=== PATIENT | male | born 1950 | race African-American/Black ===

== ENCOUNTER 2020-01-04 10:51 | Observation (INO) | payer OTHER, MEDICARE ==
[2020-01-04 11:51] LABS: Protime INR 1.01
--- NOTE | 2020-01-04 11:53 | RAD REPORT ---
EXAM DESCRIPTION: Jessie Single View01/04/2020 11:43 am CLINICAL HISTORY: Cough COMPARISON: None FINDINGS: The lungs appear clear of acute infiltrate. The heart is mildly to moderately enlarged. P acemaker leads are in place. 3.7 centimeter lucency is present within the left humeral head IMPRESSION: 3.7 centimeter lucency within the left humeral head. It is recommended that the patient have a follow up left shoulder x-ray in 2 months for re-evaluation
[2020-01-04 12:07] LABS: ALT/SGPT 14 U/L (12-78); AST/SGOT 24 U/L (15-37); Albumin 3.9 g/dL (3.4-5.0); Alkaline Phosphatase 50 U/L (45-117); BUN Blood Urea Nitrogen 17 mg/dL (7-18); Bicarbonate 29 mmol/L (21-32); Bilirubin Direct 0.2 mg/dL (0-0.2); Bilirubin Total 0.6 mg/dL (0.2-1.0); CKMB Creatine Kinase MB < 1.0 ng/mL (0.3-3.6); Creatine Phosphokinase 139 U/L (39-308); Glucose Level 105 mg/dL (74-106); Lipase 182 U/L (73-393); Potassium 3.1 mmol/L (3.5-5.1); Protein, Total 8.2 g/dL (6.4-8.2); Sodium Level 136 mmol/L (136-145); Troponin (Emerg Dept Use Only) 0.03 ng/mL (0.0-0.045)
--- NOTE | 2020-01-04 13:02 | ER ---
Nurse's Notes [facility] Name: Gonzalez Villa Age: 69 yrs Sex: Male : 1950 Arrival Date: 01/04/2020 Time: 10:52 Bed 6 Private MD: Diagnosis: Syncope and collapse Presentation: 01/03 10:13 Chief complaint: EMS states: he finished HD and was on his way home, was passenger in sv the car and had a syncopal episode, denied CP. AFib on monitor 80s and intermittently go up to 144. BP 177/99. Pt reports SOB and productive cough for about 3 months. His PCP has prescribed medication for his symptoms. Coronavirus screen: Patient denies fever greater than 100.4F, cough, shortness of breath, or difficulty breathing. Proceed with normal triage process. Ebola Screen: Patient negative for fever greater than or equal to 101.5 degrees Fahrenheit, and additional compatible Ebola Virus Disease symptoms Patient denies exposure to infectious person. Patient denies travel to an Ebola-affected area in the 21 days before illness onset. No symptoms or risks identified at this time. Initial Sepsis Screen: Does the patient meet any 2 criteria? No. Patient's initial sepsis screen is negative. Does the patient have a suspected source of infection? Yes: Productive cough/pneumonia. Risk Assessment: Do you want to hurt yourself or someone else? Patient reports no desire to harm self or others. 10:13 Method Of Arrival: EMS: [facility] 10:13 Acuity: DAIANA 2 sv 10:15 Onset of symptoms was January 04, 2020. sv Triage Assessment: 10:15 General: Appears in no apparent distress. comfortable, well groomed, well developed, sv Behavior is calm, cooperative, appropriate for age. Pain: Denies pain. Neuro: Level of Consciousness is awake, alert, obeys commands, Oriented to person, place, time, situation, Moves all extremities. Full function Gait is steady, Reports a syncopal episode weakness Denies dizziness. Cardiovascular: Patient's skin is warm and dry. Pulses are palpable in right radial artery and left radial artery Dialysis shunt: in the right arm, with palpable thrill, no bleeding noted. Respiratory: Reports shortness of breath on exertion Airway is patent Respiratory effort is even, unlabored, Respiratory pattern is regular, symmetrical, the patient has mild shortness of breath. Derm: Skin is intact, Skin is normal. Musculoskeletal: Range of motion: intact in all extremities. Historical: - Allergies: 13:27 Cipro; sv 13:27 Levaquin; sv 13:27 Stadol; sv - Home Meds: 10:59 radiation tx [Active]; sv 13:27 calcium acetate 667 mg oral cap 2-3 times daily [Active]; lisinopril 10 mg Oral tab 1 sv tab once daily [Active]; hydralazine 25 mg Oral tab three times a day [Active]; Coreg 25 mg Oral tab 1 tab 2 times per day [Active]; magnesium oxide 400 mg Oral tab twice a day [Active]; Plavix 75 mg Oral tab 1 tab once daily [Active]; isosorbide dinitrate 20 mg Oral tab Q8h [Active]; aspirin 81 mg Oral chew 1 tab once daily [Active]; nitroglycerin 0.4 mg SL subl 1 tab every 5 minutes [Active]; - PMHx: 10:59 HD; Colon cancer; Hypertension; sv 13:27 Short term memory loss; CVA; sv - PSHx: 10:59 pacemaker with defibrillator; sv - Immunization history:: Adult Immunizations up to date. - Social history:: Smoking status: Patient denies any tobacco usage or history of. Patient/guardian denies using alcohol, street drugs, The patient lives with family. - Family history:: not pertinent. Screenin:09 Abuse screen: Denies threats or abuse. Denies injuries from another. Nutritional sv screening: No deficits noted. Tuberculosis screening: No symptoms or risk factors identified. Fall Risk None identified. Assessment: 11:30 Reassessment: Patient appears in no apparent distress at this time. No changes from sv previously documented assessment. Patient and/or family updated on plan of care and expected duration. Pain level reassessed. Patient is alert, oriented x 3, equal unlabored respirations, skin warm/dry/pink. 12:05 Reassessment: Pt's HR went up to about 130-140. Pt now in the 80s. sv 12:30 Reassessment: Patient appears in no apparent distress at this time. No changes from sv previously documented assessment. Patient and/or family updated on plan of care and expected duration. Pain level reassessed. Patient is alert, oriented x 3, equal unlabored respirations, skin warm/dry/pink. 13:25 Reassessment: Spoke with Dawson, (sister) and she stated that his defibrillator went off sv before he passed out. 13:40 Reassessment: Patient appears in no apparent distress at this time. No changes from sv previously documented assessment. Patient and/or family updated on plan of care and expected duration. Pain level reassessed. Patient is alert, oriented x 3, equal unlabored respirations, skin warm/dry/pink. 13:44 Reassessment: Spoke with Slade at [facility] and stated she would page someone sv out to interrogate his pacemaker. 14:40 Reassessment: Spoke with Scarlet at [facility], they are not doing ER checks at this time unless urgent ie: failure to capture or repeatedly shocking patient. Device is a single ICD, rate set at 40. Dr. Suggs notified. 15:06 Reassessment: Patient appears in no apparent distress at this time. Patient and/or sv family updated on plan of care and expected duration. Pain level reassessed. Patient is alert, oriented x 3, equal unlabored respirations, skin warm/dry/pink. 16:06 Reassessment: Patient appears in no apparent distress at this time. Patient and/or sv family updated on plan of care and expected duration. Pain level reassessed. Patient is alert, oriented x 3, equal unlabored respirations, skin warm/dry/pink. 17:00 Reassessment: Patient appears in no apparent distress at this time. Patient and/or hb family updated on plan of care and expected duration. Pain level reassessed. Patient is alert, oriented x 3, equal unlabored respirations, skin warm/dry/pink. 17:52 Reassessment: Patient appears in no apparent distress at this time. Patient and/or hb family updated on plan of care and expected duration. Pain level reassessed. Patient is alert, oriented x 3, equal unlabored respirations, skin warm/dry/pink. 17:59 Reassessment: Attempted to call report, receiving nurse unavailable at this time. hb 18:15 Reassessment: Attempted to call report, nurse to call back. sv 18:54 Reassessment: Patient appears in no apparent distress at this time. Patient and/or hb family updated on plan of care and expected duration. Pain level reassessed. Patient is alert, oriented x 3, equal unlabored respirations, skin warm/dry/pink. 19:20 General: Appears in no apparent distress. comfortable, Behavior is calm, cooperative, jd3 appropriate for age. Pain: Denies pain. Neuro: Level of Consciousness is awake, alert, obeys commands, Oriented to person, place, time, situation, Reports syncope episode prior to arrival at ER.. Cardiovascular: Denies chest pain, Capillary refill < 3 seconds Patient's skin is warm and dry. Rhythm is regular. Respiratory: Airway is patent Respiratory effort is even, unlabored, Respiratory pattern is regular, symmetrical, Denies cough, shortness of breath. GI: No signs and/or symptoms were reported involving the gastrointestinal system. Patient currently denies nausea, vomiting. : No signs and/or symptoms were reported regarding the genitourinary system. EENT: No signs and/or symptoms were reported regarding the EENT system. Derm: Skin is intact, Skin is dry, Skin is normal, Skin temperature is warm. Musculoskeletal: Circulation, motion, and sensation intact. Range of motion: intact in all extremities. 19:30 Reassessment: Patient appears in no apparent distress at this time. attempting to call report now. Vital Signs: 10:13 BP 182 / 115; Pulse 93; Resp 20; Temp 98.4(TE); Pulse Ox 100% on R/A; Weight 84.5 kg; sv Height 5 ft. 10 in. (177.80 cm); Pain 0/10; 11:30 BP 152 / 83; Pulse 99; Resp 20; Pulse Ox 100% on R/A; sv 13:27 BP 135 / 95; Pulse 86; Resp 16; Pulse Ox 100% ; sv 14:30 BP 165 / 113; Pulse 82; Resp 16; Pulse Ox 100% ; sv 15:00 BP 172 / 105; Pulse 80; Resp 16; Pulse Ox 100% ; sv 16:05 BP 159 / 94; Pulse 80; Resp 17; Pulse Ox 100% ; sv 17:00 BP 161 / 92; Pulse 74; Resp 17; Pulse Ox 99% on R/A; hb 18:13 BP 146 / 93; Pulse 74; Resp 16; Pulse Ox 100% ; sv 19:23 BP 155 / 88; Pulse 77; Resp 18 S; Pulse Ox 99% on R/A; Pain 0/10; jd3 10:13 Body Mass Index 26.73 (84.50 kg, 177.80 cm) sv ED Course: 10:15 lunchroom monitor on. Pulse ox on. NIBP on. sv 10:52 Patient arrived in ED. sv 10:52 Suri Melendez, RN is Primary Nurse. sv 10:57 Triage completed. sv 10:58 Summer Suggs MD is Attending Physician. ma2 10:59 Arm band placed on. sv 11:00 Patient has correct armband on for positive identification. Placed in gown. Bed in low sv position. Call light in reach. Door closed. Warm blanket given. Head of bed elevated. 11:15 Missed attempt(s): 22 gauge in left forearm. Bleeding controlled, band aid applied, sv catheter tip intact. 11:20 Missed attempt(s): 20 gauge in left forearm. done by María MOLINA. Bleeding controlled, sv band aid applied, catheter tip intact. 11:25 Missed attempt(s): 24 gauge in left hand. done by María MOLINA. Bleeding controlled, band sv aid applied, catheter tip intact. 11:30 Missed attempt(s): 24 gauge in left hand. Bleeding controlled, band aid applied, sv catheter tip intact. 11:38 X-ray(s) taken. sv 11:50 Chest Single View XRAY In Process Unspecified. EDMS 13:01 Alexi Gamez is Hospitalizing Provider. ma2 13:18 Inserted 20 gauge 10 cm power glide midline inserted to L upper arm. Pt tolerated well. ss Blood return noted, flushes easily. 14:07 Lab(s) recollected, by me, sent to lab. sv 16:35 Diet tray given. jp3 19:11 Primary Nurse role handed off by Suri Melendez, JESSE sv 19:11 Report given to Joi MOLINA and Nga MOLINA. sv 19:19 Brendan Enrique RN is Primary Nurse. jd3 19:29 lunchroom monitor on. Pulse ox on. NIBP on. jd3 19:37 No provider procedures requiring assistance completed. Patient admitted, IV remains in ch place. Administered Medications: 13:27 CANCELLED (Physician Discretion): Potassium Chloride 20 mEq PO once sv 13:28 Drug: Potassium Effervescent Tablet 25 mEq Route: PO; sv 14:07 Follow up: Response: No adverse reaction sv Point of Care Testin:37 N/A Ranges: Outcome: 13:01 Decision to Hospitalize by Provider. ma2 19:36 Admitted to Tele accompanied by tech, room 208, with chart, Report called to Maddie MOLINA 19:36 Condition: stable 19:36 Instructed on the need for admit. 19:56 Patient left the ED. Signatures: Dispatcher [employer] Joi Skelton RN RN Suri Melendez RN RN Chantal Motta RN RN María Thurston RN RN hb Davies, Jonathon, RN RN jd3 Alzahri, Mohammad, MD MD ma2 Michael Acosta jp3 Corrections: (The following items were deleted from the chart) 11:38 11:25 Missed attempt(s): 24 gauge in left hand. Bleeding controlled, band aid applied, sv catheter tip intact. sv 13:10 11:00 lunchroom monitor on. Pulse ox on. NIBP on. sv sv
--- NOTE | 2020-01-04 13:03 | EDPHYS ---
Physician Documentation [facility] Name: Gonzalez Villa Age: 69 yrs Sex: Male : 1950 Arrival Date: 01/04/2020 Time: 10:52 Bed 6 Private MD: ED Physician Summer Suggs HPI: 01/03 12:56 This 69 yrs old Black Male presents to ER via EMS with complaints of Syncope, Shortness ma2 Of Breath. 12:56 The patient has experienced syncope, The patient has experienced near-syncope. Onset: ma2 The symptoms/episode began/occurred suddenly, 1 day(s) ago. Duration: This was a single episode. Associated signs and symptoms: Pertinent negatives: ataxia, combativeness, diarrhea, dizziness. Current symptoms: Currently, the patient is not experiencing any symptoms. The patient has not experienced similar symptoms in the past. post dialysis and radiation had near syncope has tachycardia he is not short of breath at this time and his saturation is normal on RA. Historical: - Allergies: 13:27 Cipro; sv 13:27 Levaquin; sv 13:27 Stadol; sv - Home Meds: 10:59 radiation tx [Active]; sv 13:27 calcium acetate 667 mg oral cap 2-3 times daily [Active]; lisinopril 10 mg Oral tab 1 sv tab once daily [Active]; hydralazine 25 mg Oral tab three times a day [Active]; Coreg 25 mg Oral tab 1 tab 2 times per day [Active]; magnesium oxide 400 mg Oral tab twice a day [Active]; Plavix 75 mg Oral tab 1 tab once daily [Active]; isosorbide dinitrate 20 mg Oral tab Q8h [Active]; aspirin 81 mg Oral chew 1 tab once daily [Active]; nitroglycerin 0.4 mg SL subl 1 tab every 5 minutes [Active]; - PMHx: 10:59 HD; Colon cancer; Hypertension; sv 13:27 Short term memory loss; CVA; sv - PSHx: 10:59 pacemaker with defibrillator; sv - Immunization history:: Adult Immunizations up to date. - Social history:: Smoking status: Patient denies any tobacco usage or history of. Patient/guardian denies using alcohol, street drugs, The patient lives with family. - Family history:: not pertinent. ROS: 12:56 Constitutional: Negative for fever, chills, and weight loss. ma2 12:56 All other systems are negative. Exam: 12:56 Abdomen/GI: Exam negative for ma2 12:56 Constitutional: This is a well developed, well nourished patient who is awake, alert, and in no acute distress. Head/Face: Normocephalic, atraumatic. Chest/axilla: Normal chest wall appearance and motion. Nontender with no deformity. No lesions are appreciated. Cardiovascular: Regular rate and rhythm with a normal S1 and S2. No gallops, murmurs, or rubs. Normal PMI, no JVD. No pulse deficits. Respiratory: Lungs have equal breath sounds bilaterally, clear to auscultation and percussion. No rales, rhonchi or wheezes noted. No increased work of breathing, no retractions or nasal flaring. Abdomen/GI: Soft, non-tender, with normal bowel sounds. No distension or tympany. No guarding or rebound. No evidence of tenderness throughout. MS/ Extremity: Pulses equal, no cyanosis. Neurovascular intact. Full, normal range of motion. Neuro: Awake and alert, GCS 15, oriented to person, place, time, and situation. Cranial nerves II-XII grossly intact. Motor strength 5/5 in all extremities. Sensory grossly intact. Cerebellar exam normal. Normal gait. Vital Signs: 10:13 BP 182 / 115; Pulse 93; Resp 20; Temp 98.4(TE); Pulse Ox 100% on R/A; Weight 84.5 kg; sv Height 5 ft. 10 in. (177.80 cm); Pain 0/10; 11:30 BP 152 / 83; Pulse 99; Resp 20; Pulse Ox 100% on R/A; sv 13:27 BP 135 / 95; Pulse 86; Resp 16; Pulse Ox 100% ; sv 14:30 BP 165 / 113; Pulse 82; Resp 16; Pulse Ox 100% ; sv 15:00 BP 172 / 105; Pulse 80; Resp 16; Pulse Ox 100% ; sv 16:05 BP 159 / 94; Pulse 80; Resp 17; Pulse Ox 100% ; sv 17:00 BP 161 / 92; Pulse 74; Resp 17; Pulse Ox 99% on R/A; hb 18:13 BP 146 / 93; Pulse 74; Resp 16; Pulse Ox 100% ; sv 19:23 BP 155 / 88; Pulse 77; Resp 18 S; Pulse Ox 99% on R/A; Pain 0/10; jd3 10:13 Body Mass Index 26.73 (84.50 kg, 177.80 cm) sv MDM: 10:58 Patient medically screened. ma2 12:56 Differential Diagnosis: drug effect, emotional response, idiopathic syncope, vasovagal ma2 episode. Data reviewed: vital signs, nurses notes. Counseling: I had a detailed discussion with the patient and/or guardian regarding: the historical points, exam findings, and any diagnostic results supporting the discharge/admit diagnosis, the presence of at least one elevated blood pressure reading (>120/80) during this emergency department visit, the need for further work-up and treatment in the hospital. Response to treatment: the patient's symptoms have mildly improved after treatment. ED course: patient has episodes of tachycardia to 130 bpm that resolves spontaneously, qrs complex is not widened, he is not having clinical dvt, no dyspnea, spo2 100 on ra. . ED course: risk of contrast over weight benefit of ct. . 14:08 ED course: called dr. cary cell phone no call back yet, i left him a voice note . ma2 17:30 ED course: discussed w dr. Cary who states he had this once before 10 yrs ago. he will ma2 f/u with him. he had normal echo 1 year ago. also had sustained VT in the past. . 01/03 10:59 Order name: Basic Metabolic Panel; Complete Time: 12:14 01/03 10:59 Order name: CBC with Diff 2 01/03 10:59 Order name: Ckmb; Complete Time: 12:14 01/03 10:59 Order name: CPK; Complete Time: 12:14 01/03 10:59 Order name: Hepatic Function; Complete Time: 12:14 01/03 10:59 Order name: Lipase; Complete Time: 12:14 01/03 10:59 Order name: Magnesium; Complete Time: 12:14 01/03 10:59 Order name: Protime (+inr); Complete Time: 12:14 01/03 10:59 Order name: Ptt, Activated; Complete Time: 12:14 01/03 10:59 Order name: Troponin (emerg Dept Use Only); Complete Time: 12:14 [facility] 01/03 10:59 Order name: Chest Single View XRAY; Complete Time: 12:14 [facility] 01/03 14:50 Order name: CBC Smear Scan [facility] 01/03 10:59 Order name: EKG; Complete Time: 11:02 [facility] 01/03 10:59 Order name: Cardiac monitoring; Complete Time: 11:11 [facility] 01/03 10:59 Order name: EKG - Nurse/Tech; Complete Time: 11:11 [facility] 01/03 10:59 Order name: IV Saline Lock; Complete Time: 13:19 [facility] 01/03 10:59 Order name: Labs collected and sent; Complete Time: 12:16 [facility] 01/03 10:59 Order name: NPO; Complete Time: 11:11 [facility] 01/03 10:59 Order name: O2 Per Protocol; Complete Time: 11:11 [facility] 01/03 10:59 Order name: O2 Sat Monitoring; Complete Time: 11:11 [facility] 01/03 11:46 Order name: Labs - recollect needed: recollect cbc; Complete Time: 13:19 01/03 13:37 Order name: Labs - recollect needed: recollect cbc; Complete Time: 14:07 01/03 16:08 Order name: Diet Heart Healthy; Complete Time: 16:08 Administered Medications: 13:27 CANCELLED (Physician Discretion): Potassium Chloride 20 mEq PO once sv 13:28 Drug: Potassium Effervescent Tablet 25 mEq Route: PO; sv 14:07 Follow up: Response: No adverse reaction sv Point of Care Testin:37 N/A ch Ranges: Critical Glucose Levels:Adult <50 mg/dl or >400 mg/dl <40 mg/dl or >180 mg/dl Disposition: 01/04/20 13:01 Hospitalization ordered by Alexi Gamez for Observation. Preliminary diagnosis is Syncope and collapse. - Bed requested for Telemetry/MedSurg (observation). - Status is Observation. ch - Condition is Stable. - Problem is new. - Symptoms are unchanged. Signatures: Dispatcher [employer] [facility] Zeinab Scott Christina, RN RN ch Verde, Stephanie, RN RN sv Summer Suggs MD MD ma2 Corrections: (The following items were deleted from the chart) 13:15 12:33 Chest For PE Angio+CT.RAD.BRZ ordered. EDMS EDMS 13:27 12:16 Potassium Chloride Liquid 20 mEq PO once ordered. ma2 sv 13:27 13:27 Potassium Chloride Liquid 20 mEq PO once ordered. sv sv 17:43 13:01 Hospitalization Ordered by Alexi Gamez for Observation. Preliminary diagnosis bd is Syncope and collapse. Bed requested for Telemetry/MedSurg (observation). Status is Observation. Condition is Stable. Problem is new. Symptoms are unchanged. ma2 19:38 10:59 Urine Dipstick-Ancillary ordered. ma2 ch 19:56 17:43 01/04/2020 13:01 Hospitalization Ordered by Alexi Gamez for Observation. Preliminary diagnosis is Syncope and collapse. Bed requested for Telemetry/MedSurg (observation). Status is Observation. Condition is Stable. Problem is new. Symptoms are unchanged. bd
[2020-01-04] MEDS ORDERED: POTASSIUM 25 MEQ EFFERV TAB ONE (13:24)
[2020-01-04 14:26] LABS: Absolute Lymphocytes (CBC) 0.5 K/uL (0.7-4.9); Basophils % 0.5 % (0-1.3); Hematocrit 28.1 % (39.6-49.0); Lymphocytes % 17.6 % (15.3-44.8); MPV 11.9 fL (7.6-11.3)
--- NOTE | 2020-01-04 15:28 | P.HP ---
Certification for Inpatient Patient admitted to: Observation With expected LOS: <2 Midnights Practitioner: I am a practitioner with admitting privileges, knowledge of patient current condition, hospital course, and medical plan of care. Services: Services provided to patient in accordance with Admission requirements found in Title 42 Section 412.3 of the Code of Federal Regulations Patient History Date of Service: 01/04/20 Reason for admission: Syncope History of Present Illness: 69-year-old woman with a history of end-stage renal disease on hemodialysis, on Saturday and Saturday present to the ED because he passed out in the way to home from dialysis. Patient denies any preceding symptoms like palpitation or sweating or nausea or dizziness. This is his 2nd episode. He stated 1st episode occured during dialysis several years ago. He has a history of Afib with tachybradycardia syndrome and has a pacemaker in place. Patient denied any chest. He mentioned his blood pressure was normal during dialysis. It was normal on arrival to the ED. Initial troponin is negative. EKG demonstrated atrial fibrillation, left anterior fascicular hemiblock at a rate of 95 beats per min. Chest x-ray shows no acute disease. There are plans to interrogate the pacemaker in the ED. Patient is placed under observation for further management. Allergies butorphanol [From Stadol] Allergy (Verified 01/04/20 20:22) affect defib-"it makes it goes off" ciprofloxacin [From Cipro] Allergy (Verified 01/04/20 20:22) defibrillator makes it goes off/shocks pt levofloxacin [From Levaquin] Allergy (Verified 01/04/20 20:22) affect defib-makes it goes off Home Medications: Albuterol Sulfate [Ventolin Hfa] 2 puff IH Q6HP PRN 01/05/20 Aspirin Chewable [Aspirin Chewable*] 81 mg PO DAILY 01/05/20 Atorvastatin Calcium [Lipitor*] 20 mg PO BEDTIME 01/05/20 Calcium Acetate [Phoslo*] 2 cap PO TIDWM 01/05/20 Magnesium Oxide [Mag 0X*] 400 mg PO BID 01/05/20 carvediloL [Carvedilol] 25 mg PO BID 01/05/20 lisinopriL [Lisinopril] 10 mg PO DAILY 01/05/20 Clopidogrel Bisulfate [Plavix] 75 mg PO DAILY 01/09/20 Hydralazine [Apresoline] 25 mg PO TID 01/09/20 Isosorbide Dinit [Isordil] 20 mg PO TID 01/09/20 Nitroglycerin 0.4 mg SL [id number] PRN 01/09/20 - Past Medical/Surgical History -: ESRD on hemodialysis -: Hypertension -: Atrial fibrillation - Family History Family History: Reviewed- Non-Contributory - Social History Smoking Status: Never smoker Alcohol use: No CD- Drugs: No Place of Residence: Home Review of Systems Other: Except as documented, all other systems reviewed and negative. Physical Examination - Physical Exam General: Alert, In no apparent distress, Oriented x3 HEENT: Mucous membr. moist/pink, Sclerae nonicteric Neck: Supple, JVD not distended Respiratory: Clear to auscultation bilaterally, Normal air movement Cardiovascular: No edema, Regular rate/rhythm, Normal S1 S2, No murmurs Capillary refill: <2 Seconds Gastrointestinal: Normal bowel sounds, Soft and benign, Non-distended, No tenderness Musculoskeletal: No swelling, No erythema Integumentary: No rashes, No erythema Neurological: Normal speech, Normal strength at 5/5 x4 extr, Cranial nerves 3- 12 intact - Studies Laboratory Data (last 24 hrs) 01/04/20 14:03: WBC 2.9 L, Hgb 9.6 L, Hct 28.1 L, Plt Count 99 L 01/04/20 11:25: PT 11.9, INR 1.01, APTT 29.9 01/04/20 11:25: Sodium 136, Potassium 3.1 L, BUN 17, Creatinine 6.80 H*, Glucose 105, Magnesium 2.0, Total Bilirubin 0.6, AST 24, ALT 14, Alkaline Phosphatase 50, Lipase 182 Assessment and Plan - Problems (Diagnosis) (1) Syncope and collapse Status: Acute (2) End stage renal disease on dialysis Status: Chronic (3) Hypertension Status: Chronic (4) Anemia due to chronic kidney disease, on chronic dialysis Status: Chronic (5) Chronic atrial fibrillation Status: Chronic (6) Presence of cardiac pacemaker Status: Chronic (7) Hypokalemia Status: Acute - Plan Place under observation. Continue to trend troponin Syncope workup with echocardiogram and carotid doppler. Pacemaker interrogation Cardiology consult Nephrology consult if patient stay is prolonged. Hold antihypertensives for now Continue heart rate control medications. Patient given potassium supplement in the ED. Monitor BMP. - Advance Directives Does patient have a Living Will: No Does patient have a Durable POA for Healthcare: No
[2020-01-04 15:51] LABS: Blood Morphology Comment NOTED (NOT SEEN); Platelet Estimate DECR; Poikilocytosis 1+; Urine White Blood Cell Casts OK
--- NOTE | 2020-01-04 16:40 | EKG ---
Test Date: 2020-01-04 Test Time: 11:08:29 Bicycle I Assembler: NASREEN MEASUREMENT RESULTS: Intervals: Rate: 99 ND: QRSD: 116 QT: 362 QTc: 464 Marble: P: ND: QRS: -57 T: 95 INTERPRETIVE STATEMENTS: Atrial fibrillation Left anterior fascicular block Possible Anterior infarct, age undetermined Abnormal ECG No previous ECG available for comparison Electronically Signed On 01-04-20 16:39:44 CDT by Hebert Argueta
[2020-01-04] MEDS ORDERED: ACETAMINOPHEN 500 MG TAB PO PRN (20:16)
[2020-01-04] MEDS ORDERED: ONDANSETRON 4 MG/2 ML VIAL IV PRN (20:16)
[2020-01-04 20:18] VITALS: BMI 26.8
[2020-01-04] MEDS: HEPARIN 5000 UNIT/ML 1 ML VIAL SQ SCH (22:04)
[2020-01-05 05:03] LABS: Absolute Lymphocytes (CBC) 0.7 K/uL (0.7-4.9); Hematocrit 31.3 % (39.6-49.0); Lymphocytes % 27.1 % (15.3-44.8); MPV 11.4 fL (7.6-11.3); RBC Red Blood Cell Count 3.36 M/uL (4.33-5.43)
[2020-01-05 05:24] LABS: Potassium 4.5 mmol/L (3.5-5.1); Thyroid Stimulating Hormone 1.15 uIU/mL (0.360-3.740)
--- NOTE | 2020-01-05 06:54 | RAD REPORT ---
EXAM DESCRIPTION: - CP - 01/04/2020 9:14 pm CLINICAL HISTORY: Syncope COMPARISON: No comparisons TECHNIQUE: Real-time sonographic evaluation of bilateral carotid and vertebral systems was performed . Mcnulty scale and Doppler interrogation were performed with waveform tracing bilaterally. FINDINGS: Normal high resistance waveforms are noted in both external carotid arteries. The common c arotid arteries and internal carotid arteries show normal low resistance waveforms. No significant plaque formation is seen. Peak systolic and end diastolic velocity values and the ICA/ CCA ratios are in the non-hemodynamically significant range. Antegrade flow seen in both vertebral arteries. Velocity values and ratios were recorded and are retained in the patient's imaging records. IMPRESSION: No significant atherosclerotic changes noted. No evidence of a hemodynamically significant stenosis.
[2020-01-05] MEDS: HEPARIN 5000 UNIT/ML 1 ML VIAL SQ SCH (09:19)
--- NOTE | 2020-01-05 10:21 | ECHO ---
HEIGHT: 5 ft 10 in WEIGHT: 186 lb 11.2 oz DATE OF STUDY: 01/05/[address]: kiesha lawson 2-DIMENSIONAL: YES M.MODE: YES DOPPLER: YES COLOR FLOW: YES TDS: NO PORTABLE: NO DEFINITY: NO BUBBLE STUDY: NO DIAGNOSIS: SYNCOPE CARDIAC HISTORY: CATHERIZATION: NO SURGERY: NO PROSTHETIC VALVE: NO PACEMAKER: YES MEASUREMENTS (cm) DIASTOLIC (NORMALS) SYSTOLIC (NORMALS) IVSd 1.2 (0.6-1.2) LA Diam 4.0 (1.9-4.0) LVEF 20-25% LVIDd 5.0 (3.5-5.7) LVIDs 4.6 (2.0-3.5) %FS % LVPWd 1.0 (0.6-1.2) Ao Diam 3.3 (2.0-3.7) 2 DIMENSIONAL ASSESSMENT: RIGHT ATRIUM: NORMAL LEFT ATRIUM: NORMAL RIGHT VENTRICLE: PERMANENT PACEMAKER LEFT VENTRICLE: NORMAL SIZE TRICUSPID VALVE: NORMAL MITRAL VALVE: NORMAL PULMONIC VALVE: NORMAL AORTIC VALVE: NORMAL PERICARDIAL EFFUSION: NONE AORTIC ROOT: NORMAL LEFT VENTRICULAR WALL MOTION: SEVERE GLOBAL HYPOKINESIS. DOPPLER/COLOR FLOW: MILD MITRAL AND TRICUSPID REGURGITATION. COMMENTS: MILD MITRAL AND TRICUSPID REGURGITATION. SEVERE GLOBAL HYPOKINESIS. PACEMAKER IN RIGHT VENTRICULAR APEX. LEFT VENTRICULAR EJECTION FRACTION 20-25%. NO EFFUSION. TECHNOLOGIST: Anthony MCRAE
[2020-01-05 12:11] VITALS: BP 135/69; TEMP 97.5
[2020-01-05] MEDS ORDERED: ALBUTEROL INHALER 60 PUFF/8 GM IH PRN (12:17)
[2020-01-05 14:11] VITALS: O2SAT 97
--- NOTE | 2020-01-05 15:38 | P.DS ---
Admission Date: 01/04/20 Discharge Date: 01/05/20 Disposition: ROUTINE DISCHARGE Discharge Condition: GOOD Reason for Admission: Syncope Consultations: Cardiology-Dr. Argueta Procedures: None. - Problems (1) Syncope and collapse Current Visit: Yes Status: Acute (2) End stage renal disease on dialysis Current Visit: Yes Status: Chronic (3) Hypertension Current Visit: Yes Status: Chronic (4) Anemia due to chronic kidney disease, on chronic dialysis Current Visit: Yes Status: Chronic (5) Chronic atrial fibrillation Current Visit: Yes Status: Chronic (6) Presence of cardiac pacemaker Current Visit: Yes Status: Chronic (7) Hypokalemia Current Visit: Yes Status: Acute Brief History of Present Illness: 69-year-old woman with a history of end-stage renal disease on hemodialysis, on Saturday and Saturday presented to the ED because he passed out on the way to home from dialysis. Patient denied any preceding symptoms like palpitation or sweating or nausea or dizziness. This was his 2nd episode of syncope He stated 1st episode occurred during dialysis several years ago. He has a history of Afib and severe LV dysfunction and has an AICD in place. Patient denied any chest pain. He mentioned his blood pressure was normal during dialysis. It was also normal on arrival to the ED. Initial troponin was negative. EKG demonstrated atrial fibrillation, left anterior fascicular hemiblock at a rate of 95 beats per min. Chest x-ray showed no acute disease. Patient was placed under observation for further management. Hospital Course: Troponin trended came back negative. No arrhythmia noted on cardiac exercise specialist. [employer] Technologist would not come over to interrogate the patient's AICD. She stated [employer] technicians are now only interrogating AICDs in emergent situations like AICD shocks, ventricular tachycardia recorded on the cardiac exercise specialist or severe bradycardia. She offered home AICD monitoring for remote access and stated she would make arrangements for the patient to have one. Patient was seen and evaluated by Dr. Argueta. Per Dr. Argueta, his AICD was interrogated 3 weeks ago. Carotid Doppler was negative for any significant carotid artery occlusion. Echocardiogram reported EF of 20-25%. His blood pressure was stable during the hospital stay. Of note patient is on multiple antihypertensives. Hydralazine was held, losartan and Coreg continued. He was normotensive without hydralazine. Given concern for orthostatic hypotension, most likely related to hemodialysis, I will discontinue hydralazine to reduce his risk of orthostasis. Patient is currently asymptomatic, and deemed clinically stable for discharge. Vital Signs/Physical Exam: Temp Pulse Resp BP Pulse Ox 97.5 F 69 18 135/69 95 01/05/20 12:00 01/05/20 12:00 01/05/20 12:00 01/05/20 12:00 01/05/20 12:00 General: Alert, In no apparent distress, Oriented x3 HEENT: Mucous membr. moist/pink, Sclerae nonicteric Neck: Supple, JVD not distended Respiratory: Clear to auscultation bilaterally, Normal air movement Cardiovascular: No edema, Normal S1 S2, Irregular heart rate/rhythm Gastrointestinal: Normal bowel sounds, Soft and benign, No tenderness Musculoskeletal: No swelling, No erythema Integumentary: No rashes Neurological: Normal speech, Normal strength at 5/5 x4 extr, Cranial nerves 3- 12 intact Laboratory Data at Discharge: WBC 2.7 K/uL (4.3-10.9) L 01/05/20 04:47 Hgb 10.5 g/dL (13.6-17.9) L 01/05/20 04:47 Hct 31.3 % (39.6-49.0) L 01/05/20 04:47 Plt Count 100 K/uL (152-406) L 01/05/20 04:47 PT 11.9 SECONDS (9.5-12.5) 01/04/20 11:25 INR 1.01 01/04/20 11:25 APTT 29.9 SECONDS (24.3-36.9) 01/04/20 11:25 Sodium 137 mmol/L (136-145) 01/05/20 04:47 Potassium 4.5 mmol/L (3.5-5.1) 01/05/20 04:47 BUN 22 mg/dL (7-18) H 01/05/20 04:47 Creatinine 8.48 mg/dL (0.55-1.3) H* D 01/05/20 04:47 Glucose 90 mg/dL (74-106) 01/05/20 04:47 Magnesium 2.0 mg/dL (1.8-2.4) 01/04/20 11:25 Total Bilirubin 0.6 mg/dL (0.2-1.0) 01/04/20 11:25 AST 24 U/L (15-37) 01/04/20 11:25 ALT 14 U/L (12-78) 01/04/20 11:25 Alkaline Phosphatase 50 U/L (45-117) 01/04/20 11:25 Troponin I 0.06 ng/mL (0.0-0.045) H 01/05/20 00:14 Lipase 182 U/L (73-393) 01/04/20 11:25 Home Medications: Albuterol Sulfate [Ventolin Hfa] 2 puff IH Q6HP PRN 01/05/20 Aspirin Chewable [Aspirin Chewable*] 81 mg PO DAILY 01/05/20 Atorvastatin Calcium [Lipitor*] 20 mg PO BEDTIME 01/05/20 Calcium Acetate [Phoslo*] 2 cap PO TIDWM 01/05/20 Clopidogrel Bisulfate [Plavix*] 75 mg PO DAILY 01/05/20 Isosorbide Dinit [Isordil*] 20 mg PO Q8H 01/05/20 Magnesium Oxide [Mag 0X*] 400 mg PO BID 01/05/20 Nitroglycerin [Nitrostat*] 0.4 mg PO Q5M 01/05/20 carvediloL [Carvedilol] 25 mg PO BID 01/05/20 lisinopriL [Lisinopril] 10 mg PO DAILY 01/05/20 Diet: Renal Activity: Fall precautions Followup: Hebert Argueta MD [ACTIVE - CAN ADMIT] - (2 weeks)
[2020-01-05] MEDS ORDERED: ISOSORBIDE DINIT 20 MG TAB PO SCH (17:00)
[2020-01-05] MEDS ORDERED: CA ACETATE 667 MG CAP PO SCH (17:00)
--- NOTE | 2020-01-05 19:51 | CON ---
Date of Consultation: 01/05/2020 Reason For Consultation: Syncope. History Of Present Illness: Mr. Villa is 69-year-old male who has a history of apparently what so unds like a cardiomyopathy, has a history of AICD and a permanent pacemaker placement. He has a hist ory of CVA, hypertension, colon cancer. He is on radiation therapy now. He also has a history of pr esumed coronary artery disease. He came in with a syncopal episode that lasted seconds. He did not have any chest pain or nausea or vomiting or diaphoresis. Denied PND, orthopnea, pedal edema, or pal pitation. Denied any shocks from his defibrillator. He has had a defibrillator checked recently ranjeet durham with a pacemaker and that checked out normal. He is asymptomatic right now. Patient is also a he modialysis patient secondary to end-stage renal disease. Allergies: CIPROFLOXACIN AND LEVAQUIN. Review of Systems: Negative. Social History: Negative. Family History: Negative. Medications: At home include aspirin, hydralazine, lisinopril, Coreg, Imdur, Plavix. Physical Examination: Vital Signs: When I saw him, his blood pressure was 165/111. Hemoglobin was 11.5. His vital signs were stable. He was afebrile. HEENT: Negative. Neck: Supple. No bruit. Chest: Clear. Cardiac: Revealed irregular rhythm and rate with an S4 gallop. Abdomen: Benign. Extremities: Revealed no clubbing, cyanosis, or edema. Diagnostic Data: Troponin of 0.06. His carotid was negative. Creatinine was 8.48. Hemoglobin was 11.5. EKG showed atrial fibrillation. Chest x-ray showed no congestive heart failure, but there was a shoulder lucency on the left side and followup in 3-6 months was recommended. Impression And Plan: 1.Syncope in a patient with history of defibrillator, pacemaker. Normal carotid Doppler. I think a n echocardiogram is reasonable. His pacemaker and defibrillator have been checked recently, but mayb e may be reasonable to check it again to see if he had any ventricular arrhythmia, although he did no t get shock. He is in atrial fibrillation that certainly could have contributed to his syncope as we ll. We have not seen anything on telemetry here. Orthostatic hypotension is another possibility. I will discuss the case further with Dr. Gamez. After the echocardiogram, we can make better decisio ns. Regardless, when he goes home, he should follow up with his lockstitch collar setter as soon as possible. 2.Elevated troponin secondary to renal failure. 3.History of cerebrovascular accident. 4.History of hypertension, stable. 5.Colon cancer, on radiation therapy now. 6.Possible history of coronary artery disease. I would continue his present regimen. His atrial fi brillation may or may not be new. I do not have any previous EKGs on him. We should consider puttin g him on Eliquis 5 mg b.i.d. I will discuss the case further with Dr. Gamez after the echocardiogra m is done. ALAN/JACI Voice ID: [id number] Report ID: [id number]
[2020-01-05] MEDS ORDERED: carvediloL 25 MG TAB PO SCH (21:00)
[2020-01-05] MEDS ORDERED: ATORVASTATIN 20 MG TAB PO SCH (21:00)
[2020-01-06] MEDS ORDERED: CLOPIDOGREL 75 MG TABLET PO SCH (09:00)
[2020-01-06] MEDS ORDERED: lisinopriL 10 MG TAB PO SCH (09:00)
== END 2020-01-05 17:21 | disposition home or self-care (01) ==
LOC: ER 10:51 → ERHOLD 16:25 → 2ND 19:38
PROVIDERS: ADMIT Internal Medicine; ATTEND Internal Medicine
DX: R55 Syncope and collapse (principal); I13.11 Hypertensive heart and chronic kidney disease without heart failure, with stage 5 chronic kidney disease, or end stage renal disease; N18.6 End stage renal disease; D63.1 Anemia in chronic kidney disease; I48.20 Chronic atrial fibrillation, unspecified; E87.6 Hypokalemia; I44.4 Left anterior fascicular block; R77.8 Other specified abnormalities of plasma proteins; R93.6 Abnormal findings on diagnostic imaging of limbs; Z79.82 Long term (current) use of aspirin; Z79.02 Long term (current) use of antithrombotics/antiplatelets; Z79.899 Other long term (current) drug therapy; Z99.2 Dependence on renal dialysis; Z95.810 Presence of automatic (implantable) cardiac defibrillator; Z86.73 Personal history of transient ischemic attack (TIA), and cerebral infarction without residual deficits; Z85.038 Personal history of other malignant neoplasm of large intestine
CPT/HCPCS: 36415; 71045; 80048; 80076; 82550; 82553; 83690; 83735; 84443; 84484; 85025; 85610; 85730; 87070; 87205; 93005; 93306; 93880; 94760; 99285; G0378; J1644

== ENCOUNTER 2020-01-08 09:44 | Inpatient (IN) | payer OTHER, MEDICARE ==
--- NOTE | 2020-01-08 11:08 | RAD REPORT ---
EXAM DESCRIPTION: RAD - Chest Single View - 01/08/2020 10:59 am CLINICAL HISTORY: CHEST PAIN Chest pain. COMPARISON: Chest Single View dated 01/04/2020 FINDINGS: Portable technique limits examination quality. The lungs are grossly clear. The heart is mildly enlarged with a single lead pacer/ defibrillator dev ice. No displaced fractures.Stent is present right brachiocephalic vein.
[2020-01-08 11:20] LABS: Absolute Lymphocytes (CBC) 0.8 K/uL (0.7-4.9); Hematocrit 29.5 % (39.6-49.0); Lymphocytes % 33.2 % (15.3-44.8); RBC Red Blood Cell Count 3.13 M/uL (4.33-5.43)
[2020-01-08] MEDS ORDERED: METOPROLOL TARTRATE 5 MG/5 ML INJ IV ONE (11:20)
[2020-01-08] MEDS ORDERED: AMIODARONE HCL 150 MG/3 ML INJ IV ONE (11:37)
[2020-01-08] MEDS ORDERED: AMIODARONE IN DEXTROSE,ISO-OSM 360 MG/200 ML BAG IV ONE (11:37)
[2020-01-08 11:38] LABS: Magnesium 2.1 mg/dL (1.8-2.4); Potassium 3.3 mmol/L (3.5-5.1); Troponin (Emerg Dept Use Only) 0.06 ng/mL (0.0-0.045)
[2020-01-08] MEDS ORDERED: D5W 0 ML IV ONE (11:38)
[2020-01-08] MEDS ORDERED: D5W 100 ML IV ONE (11:39)
--- NOTE | 2020-01-08 12:29 | ER ---
Nurse's Notes [facility] Name: Gonzalez Villa Age: 69 yrs Sex: Male : 1950 Arrival Date: 01/08/2020 Time: 09:46 Bed 3 Private MD: Diagnosis: Recurrent Ventricular Fibrillation Presentation: 01/07 09:57 Chief complaint: Patient states: "I was on my way for my radiation treatment and felt hb my pacer shock." Last HD was this morning, took 1 kg. Pt was seen in ED for same issue 3 days ago, pacer company not making ED visits at this time unless critical pacer failure to capture or repeated shocks. Coronavirus screen: reports cough and SOB x 1 month, mask placed on pt. Ebola Screen: No symptoms or risks identified at this time. Initial Sepsis Screen: Does the patient meet any 2 criteria? No. Patient's initial sepsis screen is negative. Does the patient have a suspected source of infection? No. Patient's initial sepsis screen is negative. Risk Assessment: Do you want to hurt yourself or someone else? Patient reports no desire to harm self or others. 09:57 Method Of Arrival: Ambulatory hb 09:57 Acuity: DAIANA 3 hb 11:42 Acuity: DAIANA 2 ss Triage Assessment: 10:00 General: Appears in no apparent distress. Behavior is calm, cooperative. Pain: Denies hb pain. EENT: No signs and/or symptoms were reported regarding the EENT system. Neuro: Level of Consciousness is awake, alert, obeys commands, Oriented to person, place, time, situation. Cardiovascular: Heart tones S1 S2 present Capillary refill < 3 seconds Patient's skin is warm and dry. Respiratory: Reports shortness of breath at rest Airway is patent Respiratory effort is even, unlabored, Respiratory pattern is regular, symmetrical, Breath sounds are clear bilaterally. GI: No signs and/or symptoms were reported involving the gastrointestinal system. : No signs and/or symptoms were reported regarding the genitourinary system. Derm: Skin is pink, warm \\T\\ dry. Musculoskeletal: No signs and/or symptoms reported regarding the musculoskeletal system. Historical: - Allergies: 10:01 Cipro; hb 10:01 Levaquin; hb 10:01 Stadol; hb - PMHx: 10:01 CVA; colon cancer; HD; short term memory loss; Hypertension; hb - PSHx: 10:01 pacemaker with defibrillator; hb - Immunization history:: Adult Immunizations up to date. - Social history:: Smoking status: Patient denies any tobacco usage or history of. Screenin:02 Abuse screen: Denies threats or abuse. Denies injuries from another. Nutritional hb screening: No deficits noted. Tuberculosis screening: No symptoms or risk factors identified. Fall Risk None identified. Assessment: 10:15 General: see triage assessment. hb 11:00 Reassessment: Patient appears in no apparent distress at this time. No changes from hb previously documented assessment. Patient and/or family updated on plan of care and expected duration. Pain level reassessed. 11:10 Reassessment: Pt had approx 8 second episode of vfib, implanted defib shock x 1, hb returned to NSR after shock. Dr. Floyd notified, pt moved to room 3, placed on pads, Lopressor 5 mg IVP administered as ordered. 11:40 Reassessment: Pt had unsustained runs of vtach and shocked by implanted defibrillator x hb 2, returned to NSR after each shock. Dr. Floyd at bedside. Amiodarone infusing at this time. 12:45 Reassessment: Patient appears in no apparent distress at this time. Patient and/or hb family updated on plan of care and expected duration. Pain level reassessed. NSR on monitor, pads remain in place. Admission ordered, awaiting room assignment at this time. 13:40 Reassessment: NSR on monitor, pads remain in place. Denies pain. hb Vital Signs: 09:57 BP 157 / 101; Pulse 81; Resp 16; Temp 98.1; Pulse Ox 100% ; Weight 82.5 kg; Height 5 hb ft. 10 in. (177.80 cm); Pain 0/10; 10:20 BP 157 / 96; Pulse 79; Resp 12; Pulse Ox 99% on R/A; mh5 11:15 BP 157 / 114; Pulse 83; Resp 16; Temp 97.6(TE); Pulse Ox 100% on R/A; mh5 09:57 Body Mass Index 26.10 (82.50 kg, 177.80 cm) ED Course: 09:46 Patient arrived in ED. fj1 09:46 David Floyd MD is Attending Physician. kdr 09:57 María Thurston, RN is Primary Nurse. hb 10:01 Triage completed. hb 10:01 Arm band placed on. hb 10:02 Patient has correct armband on for positive identification. Bed in low position. Call hb light in reach. Side rails up X 1. 10:19 EKG done, by ED staff, reviewed by David Floyd MD. 5 10:20 nursery manager on. Pulse ox on. NIBP on. mh5 11:01 XRAY Chest (1 view) In Process Unspecified. EDMS 11:11 Inserted saline lock: 20 gauge in left forearm, using aseptic technique. Blood ss collected. 12:25 Alexi Gamez is Hospitalizing Provider. kdr 12:38 Jarett Rivas MD is Hospitalizing Provider. kdr 13:20 No provider procedures requiring assistance completed. Accessed US guided midline. 20 ss gauge power glide inserted to L upper arm. Blood return noted. Flushes easily. 13:55 Patient admitted, IV remains in place. hb Administered Medications: 11:19 Drug: Lopressor 5 mg Route: IVP; Site: left forearm; hb 11:45 Follow up: Response: No adverse reaction hb 11:37 Drug: amiodarone 300 mg {Note: administered over 10 minutes..} Route: IVP; Site: left aa5 forearm; 11:47 Follow up: Completed infusion, no adverse reaction. aa5 11:48 Drug: amiodarone 900 mg, D5W 500 ml Route: IVPB; Rate: 1 mg/min; Site: left forearm; aa5 13:22 Follow up: IV Status: Infusion continued upon admission ss 13:45 Follow up: Response: No adverse reaction; IV Status: Infusion continued upon admission hb 13:20 Drug: Potassium Chloride 40 mEq Route: PO; hb 14:07 Follow up: Response: No adverse reaction hb 13:22 Drug: Magnesium Sulfate 1 grams Route: IVPB; Infused Over: 1 hrs; Site: left upper arm; ss 13:45 Follow up: Response: No adverse reaction; IV Status: Infusion continued upon admission hb Intake: Outcome: 12:28 Decision to Hospitalize by Provider. kdr 13:45 Admitted to ICU accompanied by nurse, accompanied by tech, via stretcher, room ICU2, hb with oxygen, with chart, Report called to Scarlet MOLINA 13:45 Condition: unchanged 13:45 Instructed on the need for admit, Demonstrated understanding of instructions. 14:04 Patient left the ED. Signatures: Dispatcher [employer] David Manning MD MD [facility] Felicia Melendrez, RN JESSE aa5 Chantal Motta RN RN María Thurston RN RN [place] [facility] Quan Miramontes [facility] Corrections: (The following items were deleted from the chart) 10:02 09:57 Chief complaint: Patient states: "I was on my way for my radiation treatment and hb felt my pacer shock." Last HD was this morning, took 1 kg. Pt was seen in ED for same issue 3 days ago, pacer company not making ED visits at this time unless critical pacer failure to capture or repeated shocks. 11:39 11:37 amiodarone 300 mg IVP in left forearm aa5 aa5 14:12 11:10 Reassessment: Pt had approx 8 second episode of vfib, implanted defib shock x 1. Dr. Floyd notified, pt moved to room 3, placed on pads, Lopressor 5 mg IVP administered as ordered. 14:12 11:40 Reassessment: Pt had unsustained runs of vtach and shocked by implanted defoliator x 2, Dr. Floyd at bedside. Amiodarone infusing at this time.
--- NOTE | 2020-01-08 12:30 | EDPHYS ---
Physician Documentation [facility] Name: Gonzalez Villa Age: 69 yrs Sex: Male : 1950 Arrival Date: 01/08/2020 Time: 09:46 Bed 3 Private MD: ED Physician David Floyd HPI: 01/07 15:02 This 69 yrs old Black Male presents to ER via Ambulatory with complaints of TINGLING, kdr SHALLOW BREATH (PACEMAKER). 15:02 The patient states that he was laving dialysis today when he felt a "tingling" in his kdr chest and then he felt that his defibrillator may have discharged. He then came to the ED with that complain. On the initial evaluation, the patient was stable and without any c/o. However, after sitting in the bed for a short time, be began to have runs of ventricular fibrillation. Some terminated spontaneously and others were terminated by discharge of his device. Onset: The symptoms/episode began/occurred suddenly, just prior to arrival. Severity of symptoms: At their worst the symptoms were moderate in the emergency department the symptoms have improved. The patient has not experienced similar symptoms in the past. The patient has not recently seen a physician. Historical: - Allergies: 10:01 Cipro; hb 10:01 Levaquin; hb 10:01 Stadol; hb - PMHx: 10:01 CVA; colon cancer; HD; short term memory loss; Hypertension; hb - PSHx: 10:01 pacemaker with defibrillator; hb - Immunization history:: Adult Immunizations up to date. - Social history:: Smoking status: Patient denies any tobacco usage or history of. ROS: 15:02 Constitutional: Negative for fever, chills, and weight loss, Eyes: Negative for injury, kdr pain, redness, and discharge, Neck: Negative for injury, pain, and swelling, Respiratory: Negative for shortness of breath, cough, wheezing, and pleuritic chest pain, Abdomen/GI: Negative for abdominal pain, nausea, vomiting, diarrhea, and constipation, Back: Negative for injury and pain, : Negative for injury, bleeding, discharge, and swelling, MS/Extremity: Negative for injury and deformity, Skin: Negative for injury, rash, and discoloration, Neuro: Negative for headache, weakness, numbness, tingling, and seizure activity. Psych: Negative for depression, anxiety, suicide ideation, homicidal ideation, and hallucinations, Allergy/Immunology: Negative for hives, rash, and allergies, Endocrine: Negative for neck swelling, polydipsia, polyuria, polyphagia, and marked weight changes, Hematologic/Lymphatic: Negative for swollen nodes, abnormal bleeding, and unusual bruising. 15:02 Cardiovascular: Positive for chest pain, palpitations, Negative for edema, orthopnea, paroxysmal nocturnal dyspnea. Exam: 15:02 Constitutional: This is a well developed, well nourished patient who is awake, alert, kdr and in no acute distress. Head/Face: Normocephalic, atraumatic. Eyes: Pupils equal round and reactive to light, extra-ocular motions intact. Lids and lashes normal. Conjunctiva and sclera are non-icteric and not injected. Cornea within normal limits. Periorbital areas with no swelling, redness, or edema. Neck: Trachea midline, no thyromegaly or masses palpated, and no cervical lymphadenopathy. Supple, full range of motion without nuchal rigidity, or vertebral point tenderness. No Meningismus. Chest/axilla: Normal chest wall appearance and motion. Nontender with no deformity. No lesions are appreciated. Cardiovascular: Regular rate and rhythm with a normal S1 and S2. No gallops, murmurs, or rubs. Normal PMI, no JVD. No pulse deficits. Respiratory: Lungs have equal breath sounds bilaterally, clear to auscultation and percussion. No rales, rhonchi or wheezes noted. No increased work of breathing, no retractions or nasal flaring. Abdomen/GI: Soft, non-tender, with normal bowel sounds. No distension or tympany. No guarding or rebound. No evidence of tenderness throughout. Back: No spinal tenderness. No costovertebral tenderness. Full range of motion. Skin: Warm, dry with normal turgor. Normal color with no rashes, no lesions, and no evidence of cellulitis. MS/ Extremity: Pulses equal, no cyanosis. Neurovascular intact. Full, normal range of motion. Neuro: Awake and alert, GCS 15, oriented to person, place, time, and situation. Cranial nerves II-XII grossly intact. Motor strength 5/5 in all extremities. Sensory grossly intact. Cerebellar exam normal. Normal gait. Psych: Awake, alert, with orientation to person, place and time. Behavior, mood, and affect are within normal limits. Vital Signs: 09:57 BP 157 / 101; Pulse 81; Resp 16; Temp 98.1; Pulse Ox 100% ; Weight 82.5 kg; Height 5 hb ft. 10 in. (177.80 cm); Pain 0/10; 10:20 BP 157 / 96; Pulse 79; Resp 12; Pulse Ox 99% on R/A; mh5 11:15 BP 157 / 114; Pulse 83; Resp 16; Temp 97.6(TE); Pulse Ox 100% on R/A; mh5 09:57 Body Mass Index 26.10 (82.50 kg, 177.80 cm) hb MDM: 12:28 Patient medically screened. kdr 12:28 Data reviewed: vital signs, nurses notes. ED course: Despite Lopressor and Amiodarone, kdr the patient has continued to have occasional v-fib though of shorter lduration. 01/07 10:44 Order name: Basic Metabolic Panel; Complete Time: 12:04 [facility] 01/07 10:44 Order name: CBC with Diff [facility] 01/07 10:44 Order name: Magnesium; Complete Time: 12:04 tx2 01/07 10:44 Order name: Troponin (emerg Dept Use Only); Complete Time: 12:04 [facility] 01/07 12:59 Order name: CBC Smear Scan [facility] 01/07 12:59 Order name: CBC with Automated Diff [facility] 01/07 10:44 Order name: XRAY Chest (1 view); Complete Time: 11:34 tx2 01/07 12:59 Order name: CBC with Automated Diff [facility] 01/07 13:00 Order name: Lipid Profile [facility] 01/07 13:00 Order name: Lipid Profile [facility] 01/07 10:44 Order name: EKG; Complete Time: 10:45 tx2 01/07 10:44 Order name: Cardiac monitoring; Complete Time: 11:12 [facility] 01/07 10:44 Order name: EKG - Nurse/Tech; Complete Time: 11:12 [facility] 01/07 10:44 Order name: IV Saline Lock; Complete Time: 11:12 [facility] 01/07 10:44 Order name: Labs collected and sent; Complete Time: 11:12 [facility] 01/07 10:44 Order name: O2 Per Protocol; Complete Time: 11:12 [facility] 01/07 10:44 Order name: O2 Sat Monitoring; Complete Time: 11:12 [facility] 01/07 12:59 Order name: CONS Pharmacy Consult [facility] 01/07 12:59 Order name: Renal EDMS Administered Medications: 11:19 Drug: Lopressor 5 mg Route: IVP; Site: left forearm; hb 11:45 Follow up: Response: No adverse reaction hb 11:37 Drug: amiodarone 300 mg {Note: administered over 10 minutes..} Route: IVP; Site: left aa5 forearm; 11:47 Follow up: Completed infusion, no adverse reaction. aa5 11:48 Drug: amiodarone 900 mg, D5W 500 ml Route: IVPB; Rate: 1 mg/min; Site: left forearm; aa5 13:22 Follow up: IV Status: Infusion continued upon admission ss 13:45 Follow up: Response: No adverse reaction; IV Status: Infusion continued upon admission hb 13:20 Drug: Potassium Chloride 40 mEq Route: PO; hb 14:07 Follow up: Response: No adverse reaction hb 13:22 Drug: Magnesium Sulfate 1 grams Route: IVPB; Infused Over: 1 hrs; Site: left upper arm; ss 13:45 Follow up: Response: No adverse reaction; IV Status: Infusion continued upon admission hb Disposition: 01/08/20 12:28 Hospitalization ordered by Jarett Rivas for Inpatient Admission. Preliminary diagnosis is Recurrent Ventricular Fibrillation . - Bed requested for Intensive Care Unit. - Status is Inpatient Admission. hb - Condition is Serious. - Problem is an acute exacerbation. - Symptoms have improved. Signatures: Dispatcher [employer] EDIL David Floyd MD MD [facility] Felicia Melendrez RN RN aa5 Chantal Motta RN RN ss María Thurston RN RN Summer Suggs MD MD ma2 Kat Cavazos Corrections: (The following items were deleted from the chart) 12:38 12:28 Hospitalization Ordered by Alexi Gamez for Inpatient Admission. Preliminary kdr diagnosis is Recurrent Ventricular Fibrillation . Bed requested for Intensive Care Unit. Status is Inpatient Admission. Condition is Serious. Problem is an acute exacerbation. Symptoms have improved. kdr 13:13 12:38 01/08/2020 12:28 Hospitalization Ordered by Jarett Rivas MD for Inpatient eb Admission. Preliminary diagnosis is Recurrent Ventricular Fibrillation . Bed requested for Intensive Care Unit. Status is Inpatient Admission. Condition is Serious. Problem is an acute exacerbation. Symptoms have improved. kdr 14:04 13:13 01/08/2020 12:28 Hospitalization Ordered by Jarett Rivas MD for Inpatient hb Admission. Preliminary diagnosis is Recurrent Ventricular Fibrillation . Bed requested for Intensive Care Unit. Status is Inpatient Admission. Condition is Serious. Problem is an acute exacerbation. Symptoms have improved. eb
[2020-01-08] MEDS ORDERED: POTASSIUM CL SA 10 MEQ TAB PO ONE ×2 (12:35→15:00)
[2020-01-08] MEDS ORDERED: MAGNESIUM SULFATE 1 gm IVPB 1 GM/100 ML BAG IV ONE (12:35)
[2020-01-08] MEDS ORDERED: MORPHINE 2 MG/ML SYR IV PRN (12:54)
[2020-01-08 12:58] LABS: Urine White Blood Cell Casts OK
[2020-01-08 12:59] LABS: Blood Morphology Comment NOT SEEN (NOT SEEN); Platelet Estimate DECR
--- NOTE | 2020-01-08 13:25 | P.HP ---
Certification for Inpatient With expected LOS: >2 Midnights Practitioner: I am a practitioner with admitting privileges, knowledge of patient current condition, hospital course, and medical plan of care. Services: Services provided to patient in accordance with Admission requirements found in Title 42 Section 412.3 of the Code of Federal Regulations Patient History Date of Service: 01/09/20 Reason for admission: Defibrillator firing History of Present Illness: Mr. Villa is 69 y/o male with ESRD on HD, AICD placement who was recently discharged from the hospital after evaluation of syncope, that occured after HD. Patient had regular HD session today and upon completion felt a shock on the chest area, cw defribrillator shock. He has had multiple episodes of debrillator firing. He drove himself to the ER, where went into V fib and had repeated shocks by AICD. He has been initiated on amiodarone drip. He has pain in the chest area of the firing. Otherwise denies any other chest pain and SOB. Allergies butorphanol [From Stadol] Allergy (Verified 01/04/20 20:22) affect defib-"it makes it goes off" ciprofloxacin [From Cipro] Allergy (Verified 01/04/20 20:22) defibrillator makes it goes off/shocks pt levofloxacin [From Levaquin] Allergy (Verified 01/04/20 20:22) affect defib-makes it goes off Home Medications: Albuterol Sulfate [Ventolin Hfa] 2 puff IH Q6HP PRN 01/05/20 Aspirin Chewable [Aspirin Chewable*] 81 mg PO DAILY 01/05/20 Atorvastatin Calcium [Lipitor*] 20 mg PO BEDTIME 01/05/20 Calcium Acetate [Phoslo*] 2 cap PO TIDWM 01/05/20 Magnesium Oxide [Mag 0X*] 400 mg PO BID 01/05/20 carvediloL [Carvedilol] 25 mg PO BID 01/05/20 lisinopriL [Lisinopril] 10 mg PO DAILY 01/05/20 Clopidogrel Bisulfate [Plavix] 75 mg PO DAILY 01/09/20 Hydralazine [Apresoline] 25 mg PO TID 01/09/20 Isosorbide Dinit [Isordil] 20 mg PO TID 01/09/20 Nitroglycerin 0.4 mg SL Q5MX3 PRN 01/09/20 - Past Medical/Surgical History Diabetic: No -: ESRD on hemodialysis - MWF -: Hypertension -: Atrial fibrillation -: defibrillator/pacemaker - Family History Mother -: Hypertension, Cancer, Kidney disease Sister -: Hypertension, Diabetes - Social History Alcohol use: No CD- Drugs: No Review of Systems 10-point ROS is otherwise unremarkable Respiratory: Cough, Sputum (whitish) Physical Examination - Physical Exam General: Alert, In no apparent distress HEENT: Atraumatic, PERRLA, Mucous membr. moist/pink, EOMI, Sclerae nonicteric Neck: Supple, 2+ carotid pulse no bruit, No LAD, Without JVD or thyroid abnormality Respiratory: Clear to auscultation bilaterally, Normal air movement Cardiovascular: Normal S1 S2, Irregular heart rate/rhythm Gastrointestinal: Normal bowel sounds, No tenderness Musculoskeletal: No tenderness Integumentary: No rashes Neurological: Normal gait, Normal speech, Normal strength at 5/5 x4 extr, Normal tone, Normal affect Lymphatics: No axilla or inguinal lymphadenopathy - Studies Laboratory Data (last 24 hrs) 01/08/20 11:05: WBC 2.4 L, Hgb 9.7 L, Hct 29.5 L, Plt Count 89 L 01/08/20 11:05: Sodium 139, Potassium 3.3 L, BUN 10, Creatinine 4.87 H D, Glucose 82, Magnesium 2.1 Assessment and Plan - Plan Mr. Villa is 69 y/o pw defribrillator firing. # Defribrillator firing appropriately- captured Tors[place] with V fib on telemonitoring. -EKG demonstrated fasicular block, PVC -Trop X1 slightly elevated as expected. For trend troponin. -defibrillator interrogation. -echocardiogram done 01/05/2020 with global hypokinesis, LVEF of 27%. -Initiated on amiodarone drip, continued close monitoring in ICU. -maintain K > 4; Mg >2 -cardiology is consulted for assistance. # CAD-continue optimize medical therapy including DAPT & statin. -close monitoring. #ESRD on HD-continue hemodialysis as scheduled. -currently euvolemic. Completed HD today. #Colon cancer-On treatment? patient is a poor historian. will obtain records from [facility]. #Hypertension- on coreg and lisinopril, will resume once bp allows, on amiodarone. DVT ppx- heparin Dispo- ICU admission. Discharge Plan: Home - Advance Directives Does patient have a Living Will: No Does patient have a Durable POA for Healthcare: Yes
[2020-01-08] MEDS: ISOSORBIDE DINIT 20 MG TAB PO SCH ×2 (15:08→21:34)
[2020-01-08] MEDS: AMIODARONE HCL 450 MG in D5W 241 ML IV SCH (15:09)
[2020-01-08] MEDS ORDERED: CA ACETATE 667 MG CAP PO SCH (17:00)
--- NOTE | 2020-01-08 17:12 | CON ---
Date of Consultation: 01/08/2020 Reason For Consultation: Cardiac arrest. History Of Present Illness: Mr. Villa is a 69-year-old male, who was just recently in the [facility] here for a syncopal episode that was thought to be orthostatic hypotension. He had not at that charito e received any shocks from AICD. At this time, he received a shock from his AICD as an outpatient, b ecame syncopal, and then he came to the emergency room where he received multiple shocks and was docu mented to have ventricular tachycardia and fibrillation on the monitor when he got shocked. He final ly got placed on IV amiodarone and stabilized. He denied any chest pain prior to the episode; denied any PND, orthopnea, or pedal edema. He just got dialyzed today. He has not had any fever or chills . Past Medical History: Basically includes history of congestive heart failure with an ejection fracti on of 20% to 25% by recent echo, has a defibrillator. Has a history of coronary artery disease as we ll. His other problems include history of CVA, hypertension, and recent onset atrial fibrillation. He has a history of colon cancer, he is receiving radiation therapy for that. Allergies: INCLUDE CIPROFLOXACIN AND LEVAQUIN. Review of Systems: Negative. Social History: Negative. Family History: Noncontributory. Medications: At home include albuterol, calcium, Isordil, aspirin, magnesium, Lipitor, Coreg 25 b.i. d., lisinopril 10 mg daily, and Plavix. He was supposed to have started Eliquis 5 mg b.i.d. as well, but I do not see that on his regimen. Physical Examination: Vital Signs: Stable now. He is in sinus rhythm on IV amiodarone. He is afebrile. HEENT: Negative. Neck: Supple with no bruit. Chest: Clear. Cardiac: Revealed irregular rhythm and rate, S3 gallops. No murmurs or rubs. Abdomen: Benign. Extremities: Revealed no clubbing, cyanosis. He has trace edema. Diagnostic Data: His creatinine is 4.87, hemoglobin of 9.7. Troponin of 0.06. Chest x-ray is pendi ng. EKG showed nonspecific changes. Impression And Plan: This is a patient with end-stage cardiomyopathy, status post defibrillator, now status post multiple shocks for ventricular tachycardia, ventricular fibrillation. He is on IV amio darone right now. His magnesium is normal. His potassium was slightly low and was supplemented. We will continue IV amiodarone for now, probably switch him to p.o. amiodarone after that. As stated i n my HPI of last visit, he was noted to have atrial fibrillation and was supposed to be on Eliquis 5 b.i.d. We will make sure he is on that when he goes home. He will need to stop the aspirin. His ot her problems include end-stage renal disease, on hemodialysis, that is stable; history of CVA that menendez s resolved. He also has a history of colon cancer on radiation therapy that is current. Has a histo ry of hypertension, coronary artery disease, and dyslipidemia. We will continue his other regimen fo r now. I will continue to follow him along. ALAN/JACI Voice ID: [id number] Report ID: [id number]
[2020-01-08] MEDS: ATORVASTATIN 20 MG TAB PO SCH (20:29)
[2020-01-08] MEDS ORDERED: EPOETIN ALFA-EPBX 10,000 UNIT/ML VIAL SQ SCH (21:00)
[2020-01-08] MEDS ORDERED: EPOETIN ALFA 10,000 UNIT/ML VIAL ONE (21:38)
[2020-01-09 05:07] LABS: Absolute Lymphocytes (CBC) 0.7 K/uL (0.7-4.9); Basophils % 0.8 % (0-1.3); Hematocrit 28.6 % (39.6-49.0); Lymphocytes % 23.5 % (15.3-44.8); MPV 11.4 fL (7.6-11.3); RBC Red Blood Cell Count 3.04 M/uL (4.33-5.43)
[2020-01-09] MEDS: ISOSORBIDE DINIT 20 MG TAB PO SCH ×3 (05:45→21:06)
[2020-01-09 05:58] LABS: Albumin 3.5 g/dL (3.4-5.0); Bilirubin Total 0.6 mg/dL (0.2-1.0); Phosphorus 2.4 mg/dL (2.5-4.9); Potassium 4.7 mmol/L (3.5-5.1); Protein, Total 7.2 g/dL (6.4-8.2)
[2020-01-09 07:32] LABS: Magnesium 2.3 mg/dL (1.8-2.4)
[2020-01-09] MEDS: VITAMIN D 5,000 UNIT CAP PO SCH (08:36)
[2020-01-09] MEDS: AMIODARONE HCL 450 MG in D5W 241 ML IV SCH (08:36)
[2020-01-09] MEDS: ASPIRIN 81 MG CHEWABLE TABLET PO SCH (08:36)
[2020-01-09] MEDS: MULTIVITAMINS,THERAPEUT 1 TAB PO SCH (08:36)
[2020-01-09] MEDS: SEVELAMER CARBONATE 800 MG TABLET PO SCH ×3 (08:36→17:00)
[2020-01-09] MEDS: CLOPIDOGREL 75 MG TABLET PO SCH (08:36)
--- NOTE | 2020-01-09 12:23 | P.CNS ---
Date of Consult: 01/09/20 patient seen/examined. presented to hospital on saturday with arrhythmia. hx of v. tach. has defibrillator. notes reviewed. patient has had dialysis on saturday. potassium, bicarb, volume status looks good. we are consulted for supervision of dialysis. his bp is on higher side with sbp around 140-170. vs reviewed. o2 sats at 100 percent on 1 litre, afebrile. alert. denies pain and talking comfortably. lungs cta abd soft ext no edema a/p: esrd/arrythmia/htn: labs reviewed. no need for acute dialysis. had treatment on saturday. next treatment is planned for saturday (his regular schedule). discussed case with patient's rounding real estate services administrator. resume coreg at home dose of 25mg twice daily and hydralaize at 10mg three times daily with parameters. ok to d/c oxygen via nc if 0 stats are staying above 92 percent and patient is comfortable. dialysis orders for saturday placed.
[2020-01-09] MEDS: carvediloL 25 MG TAB PO SCH ×2 (12:31→21:06)
[2020-01-09] MEDS ORDERED: ONDANSETRON 4 MG/2 ML VIAL IV PRN (13:39)
--- NOTE | 2020-01-09 13:54 | P.PN ---
Subjective Date of Service: 01/09/20 Chief Complaint: Defibrillator firing Subjective: Improving doing better. few seconds run of Vtach this morning. No shock. Physical Examination - Vital Signs Temperature: 97.1 F Blood Pressure: 157/89 Pulse: 81 Respirations: 14 Pulse Ox (%): 100 - Physical Exam General: Alert, In no apparent distress HEENT: Atraumatic, PERRLA, EOMI Neck: Supple, JVD not distended Respiratory: Clear to auscultation bilaterally, Normal air movement Cardiovascular: Regular rate/rhythm, Normal S1 S2 Gastrointestinal: Normal bowel sounds, No tenderness Musculoskeletal: No tenderness Integumentary: No rashes Neurological: Normal speech, Normal tone, Normal affect Lymphatics: No axilla or inguinal lymphadenopathy - Studies Laboratory Tests 01/09/20 01/09/20 04:50 04:50 WBC 3.1 L D Hgb 9.6 L Hct 28.6 L Plt Count 101 L MPV 11.4 H Sodium 138 Potassium 4.7 Carbon Dioxide 27 Creatinine 6.62 H* D Estimated GFR 10 L Uric Acid 2.0 L Phosphorus 2.4 L Alkaline Phosphatase 44 L Albumin/Globulin Ratio 0.9 L Medications List Reviewed: Yes Assessment & Plan Physician Review Additional Text: Mr. Villa is 69 y/o pw defribrillator firing. #Vib/Vtach with multiple Defribrillator firing- . -serial trop not consistent with ACD -defibrillator interrogation. -echocardiogram done 01/05/2020 with global hypokinesis, LVEF of 27%. -on amiodarone drip, will continue through the day. Transition to po in a.m per cardio -maintain K > 4; Mg >2 -DW with cardio. #H/o Afib- was discharged on eliquis on last admission, did not fill meds due to affordability. - will consider coumadin with bridging heparin product. # CAD-continue optimize medical therapy including DAPT & statin. -close monitoring. #ESRD on HD-continue hemodialysis as scheduled. -currently euvolemic. -design quality engineer on consult. #Colon cancer-On treatment? patient is a poor historian. #Hypertension- continue on coreg and lisinopril. DVT ppx- heparin Dispo- ICU Discharge Plan: Home
[2020-01-09] MEDS: HYDRALAZINE HCL 10 MG TABLET PO SCH ×2 (15:24→21:00)
--- NOTE | 2020-01-09 16:00 | PN ---
Date of Progress Note: 01/09/2020 Mr. Villa was admitted on 01/08/2020 with multiple shocks secondary to ventricular tachycardia, ve ntricular fibrillation from AICD. He was placed on IV amiodarone. He was initially hypokalemic and that was supplemented. His magnesium was normal. I discussed the case with Dr. Raygoza, his electrophys iologist in [place]. He thought that we need to probably change the dialysate because he believes th at the ventricular tachycardia and fibrillation only happens with hypokalemia. The patient remained on IV amiodarone overnight. However, today about 9:30, had another episode of ventricular tachycardi a, not requiring shock. This happened again. No shocks were administered. The patient was hemodyna mically stable on IV amiodarone at the time he had his arrhythmia. At this time, his potassium was 4 .7 at one point, 5.3 at another point. I discussed the case further with Nephrology. They will dial yze him tomorrow. I will continue the IV amiodarone for now and maybe switch him to p.o. tomorrow. Case was discussed with Nephrology and with Dr. Rivas. ALAN/JACI Voice ID: [id number] Report ID: [id number]
[2020-01-09] MEDS: ATORVASTATIN 20 MG TAB PO SCH (21:06)
[2020-01-10] MEDS ORDERED: AMIODARONE IN DEXTROSE,ISO-OSM 360 MG/200 ML BAG IV ONE (00:24)
[2020-01-10] MEDS: ISOSORBIDE DINIT 20 MG TAB PO SCH ×3 (05:30→22:13)
[2020-01-10 05:50] LABS: Magnesium 2.2 mg/dL (1.8-2.4); Phosphorus 2.4 mg/dL (2.5-4.9); Potassium 5.4 mmol/L (3.5-5.1)
[2020-01-10 05:54] LABS: Absolute Lymphocytes (CBC) 0.9 K/uL (0.7-4.9); Basophils % 0.9 % (0-1.3)
[2020-01-10 05:57] LABS: Hematocrit 27.8 % (39.6-49.0); Lymphocytes % 23.6 % (15.3-44.8); MPV 11.7 fL (7.6-11.3); RBC Red Blood Cell Count 2.95 M/uL (4.33-5.43)
[2020-01-10] MEDS: SEVELAMER CARBONATE 800 MG TABLET PO SCH ×2 (08:00→13:06)
[2020-01-10 08:15] VITALS: BMI 27.1
--- NOTE | 2020-01-10 09:18 | EKG ---
Test Date: 2020-01-08 Test Time: 10:01:14 Manager Collection: OLIVIER MEASUREMENT RESULTS: Intervals: Rate: 88 CA: 184 QRSD: 118 QT: 374 QTc: 452 [place]: P: 57 CA: 184 QRS: -71 T: 88 INTERPRETIVE STATEMENTS: Sinus rhythm with premature atrial complexes with aberrant conduction Left anterior fascicular block Septal infarct, age undetermined Abnormal ECG Compared to ECG 01/04/2020 11:08:29 Atrial premature complex(es) now present Aberrant conduction of supraventricular beat(s) now present Atrial fibrillation no longer present Myocardial infarct finding still present Electronically Signed On 01-10-20 09:16:37 CDT by Hebert Argueta
[2020-01-10] MEDS: MULTIVITAMINS,THERAPEUT 1 TAB PO SCH (09:31)
[2020-01-10] MEDS: VITAMIN D 5,000 UNIT CAP PO SCH (09:31)
[2020-01-10] MEDS: CLOPIDOGREL 75 MG TABLET PO SCH (09:31)
[2020-01-10] MEDS: HYDRALAZINE HCL 10 MG TABLET PO SCH ×3 (09:31→22:07)
[2020-01-10] MEDS: carvediloL 25 MG TAB PO SCH ×2 (09:31→22:07)
[2020-01-10] MEDS: ASPIRIN 81 MG CHEWABLE TABLET PO SCH (09:32)
[2020-01-10] MEDS: AMIODARONE HCL 200 MG TAB PO SCH ×2 (09:34→22:07)
--- NOTE | 2020-01-10 10:31 | P.PN ---
Subjective Date of Service: 01/10/20 Chief Complaint: Defibrillator firing doing better. No runs of Vtach overnight. remains stable. on Amiodarone drip. Physical Examination - Vital Signs Temperature: 97.3 F Blood Pressure: 131/82 Pulse: 61 Respirations: 15 Pulse Ox (%): 99 - Physical Exam General: Alert, In no apparent distress HEENT: Atraumatic, PERRLA, EOMI Neck: Supple, JVD not distended Respiratory: Clear to auscultation bilaterally, Normal air movement Cardiovascular: Regular rate/rhythm, Normal S1 S2 Gastrointestinal: Normal bowel sounds, No tenderness Musculoskeletal: No tenderness Integumentary: No rashes Neurological: Normal speech, Normal tone, Normal affect Lymphatics: No axilla or inguinal lymphadenopathy - Studies Medications List Reviewed: Yes Assessment & Plan Physician Review Additional Text: Mr. Villa is 69 y/o pw defribrillator firing. #Vib/Vtach with multiple Defribrillator firing- . -serial trop not consistent with ACD -defibrillator interrogation. -echocardiogram done 01/05/2020 with global hypokinesis, LVEF of 27%. -on amiodarone dri; plan to Transition to po per cardio -maintain K > 4; Mg >2 -DW with cardio. #H/o Afib- was discharged on eliquis on last admission, did not fill meds due to affordability. - Hold off OAC per cardio recommendation. -will need outpt follow up with cardio # CAD-continue optimize medical therapy including DAPT & statin. -close monitoring. #ESRD on HD-continue hemodialysis as scheduled. hyperkalemia, HD planned for tomorrow. -currently euvolemic. -senior database administrator on consult. #Colon cancer-On radiation treatment; continue outpatient. #Hypertension- continue on coreg and lisinopril. DVT ppx- heparin Dispo- transfer out of icu with telemetry if stable after po amiodarone Discharge Plan: Home
--- NOTE | 2020-01-10 11:32 | PN ---
Date of Progress Note: 01/10/2020 Subjective: Mr. Villa had come in approximately 48 hours ago with ventricular tachycardia, fibril lation, requiring multiple shocks from his defibrillator. The initial thought that he was only havin g ventricular tachycardia and fibrillation because of low potassium. At the time, he came in, his po tassium was 3.3. He was placed on IV amiodarone and has actually done very well, but even on IV amio darone he had 2 episodes of ventricular tachycardia, not requiring cardioversion. At that time he menendez d that his potassium was 4.7 at one point, 5.3 at another point. He obviously had a ventricular tach ycardia episode even when he is not hypokalemic. The case has been discussed in the past with Dr. Pepe blake. Also, discussed the case yesterday with Dr. Varela regarding his dialysis. I think he is going to get dialysis today. He has not had anymore ventricular tachycardia for about 24 hours. I will switc h him to p.o. amiodarone 400 mg 1 p.o. b.i.d. Discontinue IV amiodarone. Hopefully, move him back t o telemetry today and if he does well by tomorrow, we will send him home and he will follow up with Mary Raygoza in the near future, who will decide what to do with his arrhythmia. Certainly, a ventricular tachycardia ablation may be indicated down the road. ALAN/JACI Voice ID: [id number] Report ID: [id number]
--- NOTE | 2020-01-10 14:00 | P.PN ---
Subjective Date of Service: 01/10/20 Chief Complaint: Defibrillator firing Subjective: Improving patient seems to be doing much better. off amiodarone. sbp in 120-130 range. alert and answering questions well. off oxygen and breathing comfortably. lungs cta and no edema. vs stable lungs cta cvs rrr abd soft ext no edema right arm av fistula labs/meds reviewed a/p: esrd/arrythmia/potassium at 5.3: on potassium restriction kayaxelate once today. dialysis planned for tomorrow. clinically looks stable to go to floor. ? d/c tomorrow after dialysis if primary team and welding technician clear for discharge. Physical Examination - Vital Signs Temperature: 98.1 F Blood Pressure: 125/80 Pulse: 60 Respirations: 17 Pulse Ox (%): 100 - Studies Medications List Reviewed: Yes Assessment And Plan Physician Review Additional Text: Mr. Villa is 69 y/o pw defribrillator firing. #Vib/Vtach with multiple Defribrillator firing- . -serial trop not consistent with ACD -defibrillator interrogation. -echocardiogram done 01/05/2020 with global hypokinesis, LVEF of 27%. -on amiodarone dri; plan to Transition to po per cardio -maintain K > 4; Mg >2 -DW with cardio. #H/o Afib- was discharged on eliquis on last admission, did not fill meds due to affordability. - Hold off OAC per cardio recommendation. -will need outpt follow up with cardio # CAD-continue optimize medical therapy including DAPT & statin. -close monitoring. #ESRD on HD-continue hemodialysis as scheduled. hyperkalemia, HD planned for tomorrow. -currently euvolemic. -package handler on consult. #Colon cancer-On radiation treatment; continue outpatient. #Hypertension- continue on coreg and lisinopril. DVT ppx- heparin Dispo- transfer out of icu with telemetry if stable after po amiodarone Discharge Plan: Home
[2020-01-10] MEDS ORDERED: SOD POLYSTYREN SUL 15 GM/60 ML UCUP PO ONE (15:00)
[2020-01-10] MEDS: ATORVASTATIN 20 MG TAB PO SCH (22:07)
[2020-01-11] MEDS: ISOSORBIDE DINIT 20 MG TAB PO SCH ×2 (05:33→13:48)
[2020-01-11] MEDS: HYDRALAZINE HCL 10 MG TABLET PO SCH ×2 (09:05→13:35)
[2020-01-11] MEDS: MULTIVITAMINS,THERAPEUT 1 TAB PO SCH (09:05)
[2020-01-11] MEDS: ASPIRIN 81 MG CHEWABLE TABLET PO SCH (09:05)
[2020-01-11] MEDS: AMIODARONE HCL 200 MG TAB PO SCH (09:05)
[2020-01-11] MEDS: carvediloL 25 MG TAB PO SCH (09:05)
[2020-01-11] MEDS: VITAMIN D 5,000 UNIT CAP PO SCH (09:05)
[2020-01-11] MEDS: CLOPIDOGREL 75 MG TABLET PO SCH (09:06)
--- NOTE | 2020-01-11 10:22 | PN ---
Date of Progress Note: 01/11/2020 Mr. Jerome had come in about 3 days ago with VT, ventricular fibrillation, status post multiple ca rdiac shocks from his AICD. He has been getting dialyzed. His potassium has been normalized. He di d have 2 episodes of ventricular tachycardia while his potassium was 4.7 and 5.3. I think his cardio myopathy is the main cause of his arrhythmia. We will continue his present regimen. He did very wel l on IV amiodarone except for 2 short episodes of ventricular tachycardia. He was switched to p.o. a miodarone yesterday. He will be getting dialyzed today. I suggest he gets the amiodarone 400 b.i.d. for another 5 days and then switch to 200 mg daily. He will follow up with the marine engineer in [place] in the near future and he will decide what to put him on down the road, whether to continu e amiodarone, change his medical therapy, or maybe consider a VT ablation. ALAN/JACI Voice ID: [id number] Report ID: [id number]
--- NOTE | 2020-01-11 11:04 | P.DS ---
Admission Date: 01/08/20 Discharge Date: 01/08/20 Disposition: TRANSFER TO [facility] Discharge Condition: GOOD Reason for Admission: Defibrillator firing Brief History of Present Illness: "Mr. Villa is 69 y/o male with ESRD on HD, AICD placement who was recently discharged from the hospital after evaluation of syncope, that occured after HD. He felt the shock on the chest area, cw defribrillator shock. He has had multiple episodes of debrillator firing. He drove himself to the ER, where went into V fib and had repeated shocks by AICD. He has been initiated on amiodarone drip. He has pain in the chest area of the firing. Otherwise denies any other chest pain and SOB" Hospital Course: Patient was evaluated by travel ot, placed on amiodarone drip and ICU monitoring. He continued to have episodic arrhythmia's and shock by defibrillator despite antiarrhythmic agents. His electrolytes were monitored and remained wnl. He will be transferred to for EP service. He remained stable for transfer. Vital Signs/Physical Exam: Temp Pulse Resp BP Pulse Ox 97.6 F 62 18 136/68 98 01/11/20 04:00 01/11/20 09:05 01/11/20 04:00 01/11/20 09:05 01/11/20 04:00 General: Alert, In no apparent distress HEENT: Atraumatic, PERRLA, EOMI Neck: Supple, JVD not distended Respiratory: Clear to auscultation bilaterally, Normal air movement Cardiovascular: Regular rate/rhythm, Normal S1 S2 Gastrointestinal: Normal bowel sounds, No tenderness Musculoskeletal: No tenderness Integumentary: No rashes Neurological: Normal speech, Normal tone, Normal affect Lymphatics: No axilla or inguinal lymphadenopathy Laboratory Data at Discharge: WBC 3.7 K/uL (4.3-10.9) L D 01/10/20 05:14 Hgb 9.4 g/dL (13.6-17.9) L 01/10/20 05:14 Hct 27.8 % (39.6-49.0) L 01/10/20 05:14 Plt Count 85 K/uL (152-406) L 01/10/20 05:14 Sodium 136 mmol/L (136-145) 01/10/20 05:14 Potassium 5.4 mmol/L (3.5-5.1) H 01/10/20 05:14 BUN 33 mg/dL (7-18) H 01/10/20 05:14 Creatinine 8.71 mg/dL (0.55-1.3) H* D 01/10/20 05:14 Glucose 99 mg/dL (74-106) 01/10/20 05:14 Uric Acid 2.0 mg/dL (3.5-7.2) L 01/09/20 04:50 Phosphorus 2.4 mg/dL (2.5-4.9) L 01/10/20 05:14 Magnesium 2.2 mg/dL (1.8-2.4) 01/10/20 05:14 Total Bilirubin 0.6 mg/dL (0.2-1.0) 01/09/20 04:50 AST 18 U/L (15-37) 01/09/20 04:50 ALT 14 U/L (12-78) 01/09/20 04:50 Alkaline Phosphatase 44 U/L (45-117) L 01/09/20 04:50 Triglycerides 54 mg/dL (<150) 01/09/20 04:50 Cholesterol 107 mg/dL (<200) 01/09/20 04:50 HDL Cholesterol 77 mg/dL (40-60) H 01/09/20 04:50 Cholesterol/HDL Ratio 1.39 01/09/20 04:50 Home Medications: Albuterol Sulfate [Ventolin Hfa] 2 puff IH Q6HP PRN 01/05/20 Aspirin Chewable [Aspirin Chewable*] 81 mg PO DAILY 01/05/20 Atorvastatin Calcium [Lipitor*] 20 mg PO BEDTIME 01/05/20 Calcium Acetate [Phoslo*] 2 cap PO TIDWM 01/05/20 Magnesium Oxide [Mag 0X*] 400 mg PO BID 01/05/20 carvediloL [Carvedilol] 25 mg PO BID 01/05/20 lisinopriL [Lisinopril] 10 mg PO DAILY 01/05/20 Clopidogrel Bisulfate [Plavix*] 75 mg PO DAILY 01/09/20 Hydralazine [Apresoline*] 25 mg PO TID 01/09/20 Isosorbide Dinit [Isordil*] 20 mg PO TID 01/09/20 Nitroglycerin 0.4 mg SL [id number] PRN 01/09/20 Amiodarone HCl [Cordarone*] 400 mg PO BID 5 Days #10 tab 01/11/20 New Medications: Amiodarone HCl [Cordarone*] 400 mg PO BID 5 Days #10 tab Patient Discharge Instructions: Follow up with PCP, Bull Float Finisher and implant polisher. Maintain renal diet. Continue medications as prescribed. Diet: Renal Activity: Ad ramakrishna Followup: Hebert Argueta MD [ACTIVE - CAN ADMIT] - Max Padilla MD [OUTSIDE PHYSICIAN] - Alfredo Taveras MD [Primary Care Provider] -
[2020-01-11 11:12] VITALS: TEMP 98.7
--- NOTE | 2020-01-11 12:57 | P.PN ---
Subjective Date of Service: 01/11/20 Chief Complaint: Defibrillator firing No arrythmia overnight, was planned to dc home this morning on amiodarone. while at HD, jan hanley called due to defibrillator firing again due to possible ventricular arrhthymia. Patient is stable, awake and alert. denies any chest pain. Physical Examination - Vital Signs Temperature: 98.7 F Blood Pressure: 136/68 Pulse: 62 Respirations: 20 Pulse Ox (%): 99 - Physical Exam General: Alert, In no apparent distress HEENT: Atraumatic, PERRLA, EOMI Neck: Supple, JVD not distended Respiratory: Clear to auscultation bilaterally, Normal air movement Cardiovascular: Regular rate/rhythm, Normal S1 S2 Gastrointestinal: Normal bowel sounds, No tenderness Musculoskeletal: No tenderness Integumentary: No rashes Neurological: Normal speech, Normal tone, Normal affect Lymphatics: No axilla or inguinal lymphadenopathy - Studies Medications List Reviewed: Yes Assessment & Plan Physician Review Additional Text: Mr. Villa is 69 y/o pw defribrillator firing. #Vib/Vtach with multiple Defribrillator firing- -serial trop not consistent with ACD -defibrillator interrogated. -echocardiogram done 01/05/2020 with global hypokinesis, LVEF of 27%. -on amiodaronepo -maintain K > 4; Mg >2 -DW with cardio. Transfer for higher level of care. #H/o Afib- was discharged on eliquis on last admission, did not fill meds due to affordability. - Hold off OAC per cardio recommendation. -will need outpt follow up with cardio # CAD-continue optimize medical therapy including DAPT & statin. -close monitoring. #ESRD on HD-continue hemodialysis as scheduled. hyperkalemia, HD planned for tomorrow. -currently euvolemic. 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 #Colon cancer-On radiation treatment; continue outpatient. #Hypertension- continue on coreg and lisinopril. DVT ppx- heparin Dispo- transfer to for EP service initiated. Discharge Plan: Home
[2020-01-11 13:18] VITALS: O2SAT 96
[2020-01-11] MEDS ORDERED: AMIODARONE HCL 150 MG in D5W 100 ML IV SCH (14:00)
[2020-01-11] MEDS ORDERED: LIDOCAINE/D5W 2,000 MG/500 ML BAG IV SCH (14:00)
[2020-01-11 16:06] VITALS: BP 127/77
[2020-01-11 17:51] LABS: HBsAG Nonreactive (Nonreactive)
--- NOTE | 2020-01-11 21:01 | P.PN ---
Date of Service: 01/11/20 Vital Signs Temp Pulse Resp BP Pulse Ox 98.7 F 6 L 19 127/77 95 01/11/20 12:56 01/11/20 15:15 01/11/20 14:00 01/11/20 15:15 01/11/20 15:15 Assessment/ Plan: Nephrology CPS stable without CP or SOB. Feeling better today. Initially tolerated dialysis well. No acute events overnight. Vitals, medications, blood work and imaging reviewed in the chart. NAD. MMM. Neck supple. CTA. RRR. Soft Abd. No C/C/E. No rash. AAO and Normal Speech prior to the code. A/ ESRD on HD. Hyperkalemia. HypoPO4. Pancytopenia. Colon Cancer. HTN with CKD/ CHF. Systolic CHF, chronic. DANY/ Secondary HyperPTH. Vfib/ Vtach sp multiple Defib. P/ Continue current POC and Medications. Seen and examined at HD today. HD as ordered. The patient coded today during HD likely due to Vfib/ Vtach. HD ended early. IVF bolus as needed. The patient was resuscitated. The patient will be transferred the [facility] to be evaluated by his electrocardiologist. No further dialysis at this time. Replete electrolytes as needed. Follow up with cardiology. AM labs. Daily weight. No NSAIDs. Case reviewed with the dialysis nurse and Dr. Alonso. Greater than 30min patient care.
--- NOTE | 2020-01-12 05:25 | EKG ---
Test Date: 2020-01-11 Test Time: 12:19:50 Armored Cable Machine Operator: BRIAN MEASUREMENT RESULTS: Intervals: Rate: 65 ID: [id number] QRSD: 116 QT: 630 QTc: 655 [place]: P: 69 ID: [id number] QRS: -57 T: 221 INTERPRETIVE STATEMENTS: Undetermined rhythm Left axis deviation Incomplete left bundle branch block T wave abnormality, consider inferior ischemia T wave abnormality, consider anterolateral ischemia Prolonged QT Abnormal ECG Compared to ECG 01/08/2020 10:01:14 Left-axis deviation now present Left bundle-branch block now present T-wave abnormality now present Possible ischemia now present Prolonged QT interval now present Sinus rhythm no longer present Electronically Signed On 01-12-20 05:24:04 CDT by Hebert Argueta
--- NOTE | 2020-01-12 10:29 | EKG ---
Test Date: 2020-01-11 Test Time: 12:20:15 Hazardous Waste Management Specialist: BRIAN MEASUREMENT RESULTS: Intervals: Rate: 71 [place]: 200 QRSD: 108 QT: 662 QTc: 719 [place]: P: 130 [place]: 200 QRS: -63 T: 204 INTERPRETIVE STATEMENTS: paced rhythm/couplets anterior fascicular block ST & Marked T wave abnormality, consider anterolateral ischemia Prolonged QT Abnormal ECG Compared to ECG 01/11/2020 12:19:50 Left anterior fascicular block now present Left-axis deviation no longer present Left bundle-branch block no longer present T-wave abnormality still present Possible ischemia still present Electronically Signed On 01-12-20 10:29:01 CDT by Hebert Argueta
--- NOTE | 2020-01-12 10:29 | EKG ---
Test Date: 2020-01-11 Test Time: 12:20:40 Solar Electric/Photovoltaic Installer: BRIAN MEASUREMENT RESULTS: Intervals: Rate: 63 [place]: QRSD: 108 QT: 598 QTc: 611 [place]: P: OR: QRS: -64 T: -90 INTERPRETIVE STATEMENTS: paced rhythm Left anterior fascicular block Anteroseptal infarct, possibly acute T wave abnormality, consider inferolateral ischemia Prolonged QT couplets Compared to ECG 01/11/2020 12:20:15 Myocardial infarct finding now present T-wave abnormality still present Possible ischemia still present Electronically Signed On 01-12-20 10:28:34 CDT by Hebert Argueta
== END 2020-01-11 15:35 | disposition short-term general hospital (02) | DRG 308 ==
LOC: ER 09:44 → ERHOLD 12:56 → 3RD-ICU 13:38 → 2ND 01-10 14:52 → 3RD-ICU 01-11 12:48
PROVIDERS: ADMIT Hospitalist; ATTEND Hospitalist
DX: I47.2 Ventricular tachycardia (principal); N18.6 End stage renal disease; I13.2 Hypertensive heart and chronic kidney disease with heart failure and with stage 5 chronic kidney disease, or end stage renal disease; I50.22 Chronic systolic (congestive) heart failure; D61.818 Other pancytopenia; N25.81 Secondary hyperparathyroidism of renal origin; I49.01 Ventricular fibrillation; E87.6 Hypokalemia; E87.5 Hyperkalemia; I48.91 Unspecified atrial fibrillation; I25.10 Atherosclerotic heart disease of native coronary artery without angina pectoris; I44.60 Unspecified fascicular block; Z99.2 Dependence on renal dialysis; Z79.01 Long term (current) use of anticoagulants; Z95.810 Presence of automatic (implantable) cardiac defibrillator
CPT/HCPCS: 36415; 71045; 77385; 80048; 80053; 80061; 80076; 82550; 82553; 83690; 83735; 84100; 84132; 84443; 84484; 84550; 85025; 85610; 85730; 86317; 86704; 87070; 87205; 87340; 90935; 93005; 93306; 93880; 94760; 96365; 96367; 96375; 99285; G0378; J0282; J1644; J2405; J3475; J7060; Q5105; Q5106